=== PATIENT | male | born 1970 | race Caucasian/White ===

== ENCOUNTER 2020-02-26 21:21 | Inpatient (IN) | payer OTHER, SELFPAY ==
[2020-02-26] MEDS ORDERED: Acetaminophen 500 MG TAB ONE (21:33)
[2020-02-26 21:52] LABS: #Monocytes 0.3 thou/uL (0.11-0.59); #Neutrophils 3.3 thou/uL (1.40-6.50); %Eosinophils 0.6 % (0.0-10.0); %Lymphocytes 35.4 % (21.0-51.0); %Monocytes 5.2 % (0.0-10.0); %Neutrophils 58.9 % (42.0-75.0); Hemoglobin 14.2 g/dL (14.0-18.0); Mean Corpuscular HGB CONC 33.4 g/dL (32.0-36.0); Mean Corpuscular Hemoglobin 31.9 pg (27.0-31.0); Mean Corpuscular Volume 95.3 fL (78.0-98.0); Mean Platelet Volume 9.3 fL (7.4-10.4); Platelet Count 162 thou/uL (130-400); RBC Distribution Width 10.6 % (11.5-14.5); Red Blood Cell (RBC) Count 4.45 mill/uL (4.70-6.10); White Blood Cell (WBC) Count 5.6 thou/uL (4.8-10.8)
--- NOTE | 2020-02-26 21:55 | RAD ---
PORTABLE CHEST: 02/26/20 PROVIDED CLINICAL HISTORY: Dyspnea, COVID positive. FINDINGS: Comparison 05/04/07. Cardiac and mediastinal silhouette is within normal limits. There is bilateral air space disease invo lving predominantly mid and lower lung zones. There is no pleural fluid or pneumothorax apparent. IMPRESSION: Bilateral air space disease, compatible with pneumonia. POS: AJIME
[2020-02-26 22:13] LABS: ALT (SGPT) 33 U/L (8-55); AST (SGOT) 41 U/L (5-34); Albumin 4.1 g/dL (3.5-5.0); Alkaline Phosphatase 94 U/L (40-110); Anion Gap 15 mmol/L (10-20); BUN (Urea Nitrogen) 10 mg/dL (8.9-20.6); Bilirubin, Total 1.2 mg/dL (0.2-1.2); Calc. Creatinine Clearance 0 mL/min (70-130); Calcium 8.4 mg/dL (7.8-10.44); Carbon Dioxide 22 mmol/L (22-29); Chloride 102 mmol/L (98-107); Estimated GFR-MDRD 83; Globulin 3.4 g/dL (2.4-3.5); Glucose 124 mg/dL (70-105); Potassium 3.5 mmol/L (3.5-5.1); Protein, Total 7.5 g/dL (6.0-8.3); Sodium 135 mmol/L (136-145)
--- NOTE | 2020-02-26 22:25 | PDOC.FPRHP ---
- History of Present Illness Chief Complaint: SOB History of Present Illness: 50 yo M with asthma, COVID+ brought by EMS to ER for body aches, fever, and worsening SOB. Sxs of SOB started last Monday, went to office on Monday and tested for COVID which resulted as positive yesterday (Monday). Was sent in rx by PCP for plaquenil and azithromycin in which he has only been on one day of it. Today his breathing worsened requiring inc use of his asthma inhaler. Reports fevers and N/V/D for past day. No hematemesis or hematochezia. No recent travel. Works as construction. No positive sick/COVID contacts ED Course: NS bolus x2L 1g tylenol En route was given Duonebs - History PMHx:Asthma PSHx: R hand orthopoedic surgery for broken bones FHx:Denies Social: Denies TAD, works with construction - Review of Systems General: reports: fever/chills, weight/appetite/sleep changes ENT: reports: rhinorrhea Respiratory: reports: cough, congestion, shortness of breath Cardiovascular: denies: chest pain Gastrointestinal: reports: nausea, vomiting, diarrhea Skin: denies: rashes, lesions Neurological: denies: seizure Psychological: denies: anxiety, depression - Vital signs BP: [125/81] HR: [125] RR: [26] Tmax: [102.6] Pox: [98]% on [RA] Wt: [90.72kg ] - Physical Exam Constitutional: awake, alert and oriented, well developed HEENT: normocephalic and atraumatic, EOMI, conjunctiva clear -HEENT: dry mucosal membranes Neck: supple, FROM, trachea midline Lungs: no respiratory distress, no retractions Musculoskeletal: normal structure, ROM grossly normal Neurological: no focal deficit, CN II-XII intact, normal sensation Heme/Lymphatic: no unusual bruising or bleeding, no purpura Psychiatric: normal mood and affect, good judgment and insight, intact recent and remote memory FMR H&P: Results - Labs Result Diagrams: 02/26/20 21:45 02/26/20 21:45 Lab results: WBC 5.6 thou/uL (4.8-10.8) 02/26/20 21:45 Hgb 14.2 g/dL (14.0-18.0) 02/26/20 21:45 Hct 42.4 % (42.0-52.0) 02/26/20 21:45 MCV 95.3 fL (78.0-98.0) 02/26/20 21:45 Plt Count 162 thou/uL (130-400) 02/26/20 21:45 Neutrophils % 58.9 % (42.0-75.0) 02/26/20 21:45 Sodium 135 mmol/L (136-145) L 02/26/20 21:45 Potassium 3.5 mmol/L (3.5-5.1) 02/26/20 21:45 Chloride 102 mmol/L (98-107) 02/26/20 21:45 Carbon Dioxide 22 mmol/L (22-29) 02/26/20 21:45 BUN 10 mg/dL (8.9-20.6) 02/26/20 21:45 Creatinine 0.96 mg/dL (0.7-1.3) 02/26/20 21:45 Glucose 124 mg/dL (70-105) H 02/26/20 21:45 Lactic Acid 2.8 mmol/L (0.5-2.2) H 02/26/20 21:45 Calcium 8.4 mg/dL (7.8-10.44) 02/26/20 21:45 Total Bilirubin 1.2 mg/dL (0.2-1.2) 02/26/20 21:45 AST 41 U/L (5-34) H 02/26/20 21:45 ALT 33 U/L (8-55) 02/26/20 21:45 Alkaline Phosphatase 94 U/L (40-110) 02/26/20 21:45 Serum Total Protein 7.5 g/dL (6.0-8.3) 02/26/20 21:45 Albumin 4.1 g/dL (3.5-5.0) 02/26/20 21:45 - EKG Interpretation EKG: Tachycardia, no ST/T wave segment changes - Radiology Interpretation Chest x-ray Status: image reviewed by me, report reviewed by me Additional comment: b/l interstitial infiltrate FMR H&P: A/P - Problem List (1) COVID-19 Current Visit: Yes Status: Acute Code(s): U07.1 - COVID-19 (2) Lactic acidosis Current Visit: Yes Status: Acute Code(s): E87.2 - ACIDOSIS (3) Asthma Current Visit: Yes Status: Acute Code(s): J45.909 - UNSPECIFIED ASTHMA, UNCOMPLICATED - Plan 50 yo M with asthma and COVID+ here for sepsis 2/2 COVID #Sepsis 2/2 COVID -Tachycardic & tachypneic, febrile -Non hypoxic on room air, but mildly tachypneic, will obtain ABG -Took 400mg BID of plaquenil yesterday, so will continue with 200mg BID -Continue azithromycin 250mg -s/p Rocephin in ER, procal 0.3, will d/c -Will obtain LDH, CRP, ferritin, Ddimer, coags -admit to tele/obs #Lactic acidosis -LA 2.8, s/p 2L bolus, recheck #Asthma -Continue albuterol PRN by INH -Exam not consistent with asthma exacerbation DVT ppx: Lovenox Abx: Azithromycin, plaquenil Dispo: >2 midnights PCP: Susana Code: Full Discussed with Dr. Wetzel FMR H&P: Upper Level - Plan Date/Time: 02/26/203 I, [], have evaluated this patient and agree with findings/plan as outlined by senior international tax manager resident. Pertinent changes/additions are listed here. Addendum - Attending - Attending Attestation Date/Time: 02/27/20 0023 I personally evaluated the patient and discussed the management with Dr. Betancourt. I agree with the History, Examination, Assessment and Plan documented above with any addition or exceptions noted below. Lungs CTA-B will hold off steroids for now. PRN albuterol INH. ABG for baseline SpO2 given underlying asthma. States he has not been in community since sx started on Monday.
[2020-02-26 22:48] LABS: INR-International Normal Ratio 0.9; PTT 34.4 SEC (22.9-36.1); Prothrombin Time 12.6 SEC (12.0-14.7)
[2020-02-26] MEDS ORDERED: Cefepime 2 GM VIAL ONE (23:21)
[2020-02-26] MEDS ORDERED: cefTRIAXone\\ROCEPHIN 2 GM VIAL ONE (23:58)
[2020-02-27] MEDS ORDERED: Sodium Chloride 0.9% 1,000 ML IV SCH (00:16)
[2020-02-27 00:22] VITALS: BMI 33.4
[2020-02-27 00:42] LABS: Actual Bicarbonate (HCO3a) 20.2 mEq/L (22-28); Base Excess (BEa) -3.3 mEq/L (-2.0 to +3.0); CO2 Tension 31.2 mmHg (35.0-45.0); Calcium, Ionized 1.04 mmol/L (1.12-1.30); Carboxyhemoglobin (COHb) 1.4 gm% (0.0-3.0); Hemoglobin (Hb) 12.4 g/dL (14.0-18.0); O2 Tension (PaO2) 67.3 mmHg (80.0-100.0); Potassium - ABG Lab 3.45 mmol/L (3.70-5.30); pH, Arterial 7.43 (7.35-7.45)
[2020-02-27 00:43] LABS: Puncture Site RBR
[2020-02-27] MEDS: Acetaminophen 500 MG TAB PO PRN ×2 (00:51→20:08)
[2020-02-27] MEDS: Lactated Ringer's 1,000 ML IV SCH ×4 (00:51→20:12)
[2020-02-27 00:56] LABS: Lactic Acid 1.2 mmol/L (0.5-2.2)
[2020-02-27] MEDS ORDERED: PROVENTIL INHALER 6.7 G (200 INHALATIONS) INH SCH (01:00)
[2020-02-27 01:05] LABS: Troponin I Less than 0.010 ng/mL (< 0.028)
[2020-02-27] MEDS: Albuterol 200 PUFF (6.7GM INHALER) INH SCH ×6 (01:26→20:20)
[2020-02-27] MEDS: Benzonatate 100 MG CAP PO PRN ×3 (05:04→15:02)
[2020-02-27 05:26] LABS: #Lymphocytes 1.3 thou/uL (1.20-3.40); #Monocytes 0.3 thou/uL (0.11-0.59); #Neutrophils 2.4 thou/uL (1.40-6.50); %Basophils 0.4 % (0.0-1.0); %Eosinophils 0.4 % (0.0-10.0); %Lymphocytes 32.4 % (21.0-51.0); %Monocytes 8.5 % (0.0-10.0); %Neutrophils 58.4 % (42.0-75.0); Hemoglobin 12.1 g/dL (14.0-18.0); Mean Corpuscular HGB CONC 33.4 g/dL (32.0-36.0); Mean Corpuscular Hemoglobin 32.2 pg (27.0-31.0); Mean Corpuscular Volume 96.5 fL (78.0-98.0); Mean Platelet Volume 9.1 fL (7.4-10.4); Platelet Count 149 thou/uL (130-400); RBC Distribution Width 10.7 % (11.5-14.5); Red Blood Cell (RBC) Count 3.77 mill/uL (4.70-6.10)
[2020-02-27] MEDS ORDERED: Ibuprofen 600 MG TAB PO ONE (05:30)
[2020-02-27 05:47] LABS: Lactic Acid 1.4 mmol/L (0.5-2.2)
[2020-02-27 05:51] LABS: ALT (SGPT) 28 U/L (8-55); AST (SGOT) 36 U/L (5-34); Albumin 3.3 g/dL (3.5-5.0); Alkaline Phosphatase 76 U/L (40-110); Anion Gap 14 mmol/L (10-20); BUN (Urea Nitrogen) 8 mg/dL (8.9-20.6); Bilirubin, Total 1.1 mg/dL (0.2-1.2); Calc. Creatinine Clearance 144 mL/min (70-130); Calcium 7.7 mg/dL (7.8-10.44); Carbon Dioxide 20 mmol/L (22-29); Chloride 107 mmol/L (98-107); Estimated GFR-MDRD Greater than 90; Globulin 2.6 g/dL (2.4-3.5); Glucose 109 mg/dL (70-105); Potassium 3.9 mmol/L (3.5-5.1); Protein, Total 5.9 g/dL (6.0-8.3); Sodium 137 mmol/L (136-145)
[2020-02-27] MEDS: Enoxaparin Sodium 30 MG/0.3 ML SYRINGE SC SCH (08:45)
[2020-02-27] MEDS: Hydroxychloroquine Sulfate 200 MG TAB PO SCH ×2 (08:46→20:08)
[2020-02-27] MEDS: Azithromycin 250 MG, Admixture Fee 1 EACH in Sodium Chloride 0.9% 250 ML 250 ML IVPB SCH (08:46)
[2020-02-27] MEDS ORDERED: Hydroxychloroquine Sulfate 200 MG TAB PO SCH (09:00)
[2020-02-27] MEDS ORDERED: Azithromycin 250 MG TAB PO SCH (09:00)
--- NOTE | 2020-02-27 09:30 | PDOC.FM ---
- Subjective Subjective: Pt reports feeling improved from admission in regards to cough, sob, and fevers. no other complaints at this time. - Objective Vital Signs & Weight: Vital Signs (12 hours) Temp Pulse Resp BP Pulse Ox 02/27/20 07:12 99.6 F 82 22 H 116/72 95 02/27/20 04:00 98.2 F 82 24 H 126/67 100 02/27/20 01:01 98 02/27/20 00:22 100.2 F H 102 H 24 H 105/61 98 Weight Weight 91.036 kg Result Diagrams: 02/27/20 05:02 02/27/20 05:02 Phys Exam - Physical Examination Constitutional: NAD HEENT: moist MMs, sclera anicteric Neck: supple, full ROM Respiratory: no wheezing diffuse fine bilateral crackles Cardiovascular: RRR, no significant murmur Gastrointestinal: soft, non-tender Musculoskeletal: pulses present Neurological: normal sensation, moves all 4 limbs Psychiatric: normal affect, A&O x 3 Skin: no rash, normal turgor Dx/Plan (1) Sepsis Code(s): A41.9 - SEPSIS, UNSPECIFIED ORGANISM Status: Acute (2) Asthma Code(s): J45.909 - UNSPECIFIED ASTHMA, UNCOMPLICATED Status: Acute (3) COVID-19 Code(s): U07.1 - COVID-19 Status: Acute (4) Lactic acidosis Code(s): E87.2 - ACIDOSIS Status: Acute - Plan Plan: 50 yo M with asthma and COVID+ here for sepsis 2/2 COVID Sepsis 2/2 COVID A- improved from presentation. On admission pt was Tachycardic & tachypneic, febrile. Hypoxia on ABG, pt on O2. Symptomatic since 02/20, Started therapy on 02/24. Procal was 0.3. s/p 1 dose rocephin P- Continue azithromycin and hydroxychloroquin -f/u BCx -will trend covid labs Lactic acidosis -resolved Asthma -Continue albuterol PRN by INH, exam not consistent with asthma exacerbation DVT ppx: Lovenox PCP: Susana IVF: LR 100/hr Code: Full
[2020-02-27] MEDS: Metoclopramide HCl 10 MG/2 ML VIAL IVP PRN ×2 (10:08→23:07)
--- NOTE | 2020-02-27 14:53 | EKG ---
Test Reason : Blood Pressure : / mmHG Vent. Rate : 116 BPM Atrial Rate : 116 BPM P-R Int : 134 ms QRS Dur : 082 ms QT Int : 340 ms P-R-T Axes : 043 000 033 degrees QTc Int : 472 ms Sinus tachycardia Otherwise normal ECG Confirmed by VALDEZ JOYNER, MIKEL Loving ([id number]), assistant film editor SADIE ARMSTRONG ([id number]) on 02/27/2020 2:53:04 PM Referred By: Confirmed By:MIKEL KELLOGG MD
[2020-02-27] MEDS ORDERED: Morphine 10 MG/0.5 ML ORAL SYRINGE SL PRN (16:45)
[2020-02-27 18:22] LABS: Base Excess (BEa) -0.2 mEq/L (-2.0 to +3.0); Hemoglobin (Hb) 12.2 g/dL (14.0-18.0); pH, Arterial 7.46 (7.35-7.45)
[2020-02-27 18:23] LABS: Calcium, Ionized 1.12 mmol/L (1.12-1.30); Carboxyhemoglobin (COHb) 0.8 gm% (0.0-3.0); Puncture Site LRA
[2020-02-28] MEDS: Acetaminophen 500 MG TAB PO PRN ×3 (01:36→20:15)
[2020-02-28] MEDS: Albuterol 200 PUFF (6.7GM INHALER) INH SCH ×6 (01:58→23:21)
[2020-02-28] MEDS ORDERED: Aspirin/APAP/Caffeine Tab (Excedrin Migraine) PO SCH (02:00)
[2020-02-28] MEDS ORDERED: Lactated Ringer's 1,000 ML IV SCH (02:00)
[2020-02-28] MEDS: Lactated Ringer's 1,000 ML IV SCH ×3 (06:50→23:20)
[2020-02-28 08:11] LABS: ALT (SGPT) 34 U/L (8-55); AST (SGOT) 41 U/L (5-34); Albumin 3.2 g/dL (3.5-5.0); Alkaline Phosphatase 79 U/L (40-110); Anion Gap 13 mmol/L (10-20); BUN (Urea Nitrogen) 7 mg/dL (8.9-20.6); Bilirubin, Total 1.2 mg/dL (0.2-1.2); CRP (Inflammatory) 13.65 mg/dL (= or < 0.5); Calc. Creatinine Clearance 170 mL/min (70-130); Calcium 8.3 mg/dL (7.8-10.44); Carbon Dioxide 22 mmol/L (22-29); Chloride 108 mmol/L (98-107); Estimated GFR-MDRD Greater than 90; Globulin 2.9 g/dL (2.4-3.5); Glucose 80 mg/dL (70-105); Potassium 3.9 mmol/L (3.5-5.1); Protein, Total 6.1 g/dL (6.0-8.3); Sodium 139 mmol/L (136-145)
[2020-02-28] MEDS: Hydroxychloroquine Sulfate 200 MG TAB PO SCH ×2 (08:47→20:16)
[2020-02-28] MEDS: Enoxaparin Sodium 30 MG/0.3 ML SYRINGE SC SCH (08:47)
--- NOTE | 2020-02-28 08:58 | PDOC.FM ---
- Subjective Subjective: Pt feeling improved from yesterday, decreased cough/sob. no cp. no wheezing - Objective Vital Signs & Weight: Vital Signs (12 hours) Temp Pulse Resp BP Pulse Ox 02/28/20 08:44 99.1 F 79 20 139/77 100 02/28/20 03:15 97.1 F L 72 20 115/74 100 02/28/20 02:00 100 02/27/20 23:12 98.7 F 95 26 H 109/70 99 Weight Admit Weight 91.036 kg Weight 91.036 kg I&O: 02/27/20 02/28/20 02/29/20 06:59 06:59 06:59 Intake Total 1450 Output Total 200 Balance 1250 Result Diagrams: 02/27/20 05:02 02/28/20 07:27 Phys Exam - Physical Examination Constitutional: NAD HEENT: moist MMs, sclera anicteric Neck: no JVD, supple Respiratory: no wheezing bilat fine crackles Cardiovascular: RRR, no significant murmur Gastrointestinal: soft, non-tender Musculoskeletal: no edema, pulses present Neurological: normal sensation, moves all 4 limbs Psychiatric: normal affect, A&O x 3 Skin: no rash, normal turgor Dx/Plan (1) Sepsis Code(s): A41.9 - SEPSIS, UNSPECIFIED ORGANISM Status: Acute (2) Asthma Code(s): J45.909 - UNSPECIFIED ASTHMA, UNCOMPLICATED Status: Acute (3) COVID-19 Code(s): U07.1 - COVID-19 Status: Acute (4) Lactic acidosis Code(s): E87.2 - ACIDOSIS Status: Acute - Plan Plan: 50 yo M with asthma and COVID+ here for sepsis 2/2 COVID Sepsis 2/2 COVID A- stable from yesterday. Requiring 3L O2 now which is increase from admission, however pt no longer tachycardic/tachypneic. On admission pt was Tachycardic & tachypneic, febrile. Hypoxia on ABG, pt on O2. Symptomatic since 02/20, Started therapy on 02/24. Procal was 0.3. s/p 1 dose rocephin P- Continue azithromycin and hydroxychloroquin -f/u BCx -will trend covid labs Lactic acidosis -resolved Asthma -Continue albuterol PRN by INH, exam not consistent with asthma exacerbation DVT ppx: Lovenox PCP: Susana IVF: LR 100/hr Code: Full
[2020-02-28] MEDS: Azithromycin 250 MG, Admixture Fee 1 EACH in Sodium Chloride 0.9% 250 ML 250 ML IVPB SCH (09:52)
[2020-02-28] MEDS: Benzonatate 100 MG CAP PO PRN ×2 (13:36→20:16)
[2020-02-29] MEDS: Acetaminophen 500 MG TAB PO PRN ×3 (04:20→20:38)
[2020-02-29] MEDS: Albuterol 200 PUFF (6.7GM INHALER) INH SCH ×6 (04:21→20:41)
[2020-02-29 06:21] LABS: ALT (SGPT) 44 U/L (8-55); AST (SGOT) 50 U/L (5-34); Albumin 3.3 g/dL (3.5-5.0); Alkaline Phosphatase 94 U/L (40-110); Anion Gap 9 mmol/L (10-20); BUN (Urea Nitrogen) 7 mg/dL (8.9-20.6); Bilirubin, Total 1.6 mg/dL (0.2-1.2); Calc. Creatinine Clearance 158 mL/min (70-130); Calcium 8.7 mg/dL (7.8-10.44); Carbon Dioxide 29 mmol/L (22-29); Chloride 103 mmol/L (98-107); Estimated GFR-MDRD Greater than 90; Globulin 2.9 g/dL (2.4-3.5); Glucose 97 mg/dL (70-105); Potassium 3.9 mmol/L (3.5-5.1); Protein, Total 6.2 g/dL (6.0-8.3); Sodium 137 mmol/L (136-145)
[2020-02-29] MEDS: Azithromycin 250 MG, Admixture Fee 1 EACH in Sodium Chloride 0.9% 250 ML 250 ML IVPB SCH (08:19)
[2020-02-29] MEDS: Hydroxychloroquine Sulfate 200 MG TAB PO SCH ×2 (08:20→20:35)
[2020-02-29] MEDS: Enoxaparin Sodium 30 MG/0.3 ML SYRINGE SC SCH (08:21)
[2020-02-29] MEDS: Lactated Ringer's 1,000 ML IV SCH ×2 (08:22→20:35)
--- NOTE | 2020-02-29 10:11 | PDOC.FM ---
- Subjective Subjective: Pt reports feeling mild improvement from yesterday, no new complaitns, continued sob/cough - Objective Vital Signs & Weight: Vital Signs (12 hours) Temp Pulse Resp BP Pulse Ox 02/29/20 08:13 97.6 F 79 20 123/78 100 02/29/20 04:00 101.2 F H 96 18 137/80 100 02/29/20 00:00 99.5 F 83 18 128/76 100 Weight Admit Weight 91.036 kg Weight 91.036 kg I&O: 02/28/20 02/29/20 03/01/20 06:59 06:59 06:59 Intake Total 1450 1560 Output Total 200 1275 Balance 1250 285 Result Diagrams: 02/27/20 05:02 02/29/20 05:07 Phys Exam - Physical Examination Constitutional: NAD HEENT: moist MMs, sclera anicteric Neck: supple, full ROM Respiratory: no wheezing fine crackles bilat Cardiovascular: RRR, no significant murmur Gastrointestinal: soft, non-tender Musculoskeletal: no edema, pulses present Neurological: normal sensation, moves all 4 limbs Psychiatric: normal affect, A&O x 3 Skin: no rash, normal turgor Dx/Plan (1) Sepsis Code(s): A41.9 - SEPSIS, UNSPECIFIED ORGANISM Status: Acute (2) Asthma Code(s): J45.909 - UNSPECIFIED ASTHMA, UNCOMPLICATED Status: Acute (3) COVID-19 Code(s): U07.1 - COVID-19 Status: Acute (4) Lactic acidosis Code(s): E87.2 - ACIDOSIS Status: Acute - Plan Plan: 50 yo M with asthma and COVID+ here for sepsis 2/2 COVID Sepsis 2/2 COVID A- stable from yesterday. Requiring 2-3L however pt no longer tachycardic/ tachypneic. On admission pt was Tachycardic & tachypneic, febrile. Hypoxia on ABG, pt on O2. Symptomatic since 02/20, Started therapy on 02/24. Procal was 0.3. s/ p 1 dose rocephin. BCx negative P- Continue azithromycin and hydroxychloroquin -will trend covid labs -monitor heart on tele strip considering hydroxychloroquin Lactic acidosis -resolved Asthma -Continue albuterol PRN by INH, exam not consistent with asthma exacerbation DVT ppx: Lovenox PCP: Susana IVF: LR 100/hr Code: Full
[2020-02-29] MEDS: HYDROcodone/Acetaminophen 5/325 mg Tablet PO PRN ×2 (16:05→22:05)
[2020-02-29] MEDS: Benzonatate 100 MG CAP PO PRN (17:42)
[2020-02-29] MEDS: Metoclopramide HCl 10 MG/2 ML VIAL IVP PRN (22:59)
[2020-03-01] MEDS: Lactated Ringer's 1,000 ML IV SCH ×2 (04:41→17:00)
[2020-03-01] MEDS: Albuterol 200 PUFF (6.7GM INHALER) INH SCH ×5 (04:42→17:30)
[2020-03-01] MEDS: HYDROcodone/Acetaminophen 5/325 mg Tablet PO PRN ×3 (04:44→13:52)
[2020-03-01 07:26] LABS: ALT (SGPT) 54 U/L (8-55); AST (SGOT) 46 U/L (5-34); Albumin 3.2 g/dL (3.5-5.0); Alkaline Phosphatase 120 U/L (40-110); Anion Gap 10 mmol/L (10-20); BUN (Urea Nitrogen) 7 mg/dL (8.9-20.6); Bilirubin, Total 1.7 mg/dL (0.2-1.2); Calc. Creatinine Clearance 163 mL/min (70-130); Calcium 8.5 mg/dL (7.8-10.44); Carbon Dioxide 28 mmol/L (22-29); Chloride 101 mmol/L (98-107); Estimated GFR-MDRD Greater than 90; Globulin 3.1 g/dL (2.4-3.5); Glucose 92 mg/dL (70-105); Potassium 3.6 mmol/L (3.5-5.1); Protein, Total 6.3 g/dL (6.0-8.3); Sodium 135 mmol/L (136-145)
[2020-03-01 07:30] LABS: #Eosinphils 0.1 thou/uL (0.0-0.7); #Lymphocytes 1.6 thou/uL (1.20-3.40); #Monocytes 0.9 thou/uL (0.11-0.59); #Neutrophils 3.7 thou/uL (1.40-6.50); %Basophils 0.2 % (0.0-1.0); %Eosinophils 1.9 % (0.0-10.0); %Lymphocytes 25.6 % (21.0-51.0); %Monocytes 13.8 % (0.0-10.0); %Neutrophils 58.5 % (42.0-75.0); Hemoglobin 10.9 g/dL (14.0-18.0); Mean Corpuscular HGB CONC 34.4 g/dL (32.0-36.0); Mean Corpuscular Hemoglobin 32.9 pg (27.0-31.0); Mean Corpuscular Volume 95.4 fL (78.0-98.0); Mean Platelet Volume 8.4 fL (7.4-10.4); Platelet Count 218 thou/uL (130-400); RBC Distribution Width 10.4 % (11.5-14.5); Red Blood Cell (RBC) Count 3.32 mill/uL (4.70-6.10); White Blood Cell (WBC) Count 6.3 thou/uL (4.8-10.8)
[2020-03-01] MEDS: Hydroxychloroquine Sulfate 200 MG TAB PO SCH (08:52)
[2020-03-01] MEDS: Enoxaparin Sodium 30 MG/0.3 ML SYRINGE SC SCH (08:52)
[2020-03-01] MEDS: Azithromycin 250 MG, Admixture Fee 1 EACH in Sodium Chloride 0.9% 250 ML 250 ML IVPB SCH (08:52)
--- NOTE | 2020-03-01 09:24 | PDOC.FM ---
- Subjective Subjective: Pt stable, reports improvement on sob, no new complaints - Objective Vital Signs & Weight: Vital Signs (12 hours) Temp Pulse Resp BP Pulse Ox 03/01/20 08:43 98.5 F 93 18 124/80 95 03/01/20 04:00 99.9 F H 90 22 H 133/83 97 02/29/20 23:02 100.5 F H 96 25 H 116/69 100 02/29/20 22:08 102.8 F H 99 Weight Admit Weight 91.036 kg Weight 91.036 kg I&O: 02/29/20 03/01/20 03/02/20 06:59 06:59 06:59 Intake Total 1560 1730 Output Total 1275 1715 Balance 285 15 Result Diagrams: 03/01/20 07:21 03/01/20 04:27 Phys Exam - Physical Examination Constitutional: NAD HEENT: moist MMs, sclera anicteric Neck: supple, full ROM Respiratory: no wheezing, no rhonchi Cardiovascular: RRR, no significant murmur Gastrointestinal: soft, non-tender Musculoskeletal: no edema, pulses present Neurological: normal sensation, moves all 4 limbs Psychiatric: normal affect, A&O x 3 Skin: no rash, normal turgor Dx/Plan (1) Sepsis Code(s): A41.9 - SEPSIS, UNSPECIFIED ORGANISM Status: Acute (2) Asthma Code(s): J45.909 - UNSPECIFIED ASTHMA, UNCOMPLICATED Status: Acute (3) COVID-19 Code(s): U07.1 - COVID-19 Status: Acute (4) Lactic acidosis Code(s): E87.2 - ACIDOSIS Status: Acute - Plan Plan: 50 yo M with asthma and COVID+ here for sepsis 2/2 COVID Sepsis 2/2 COVID A- Improved, while in room was satting 100% on RA. On admission pt was Tachycardic & tachypneic, febrile. Hypoxia on ABG, pt on O2. Symptomatic since , Started therapy on 02/24. Procal was 0.3. s/p 1 dose rocephin. BCx negative P- Continue azithromycin and hydroxychloroquin -will trend covid labs (ferritin, LDH, ddimer, CRP - Q2D) -monitor heart on tele strip considering hydroxychloroquin -room air trial today Lactic acidosis -resolved Asthma -Continue albuterol PRN by INH, exam not consistent with asthma exacerbation DVT ppx: Lovenox PCP: Susana IVF: LR 100/hr Code: Full
[2020-03-01] MEDS: Metoclopramide HCl 10 MG/2 ML VIAL IVP PRN (10:08)
[2020-03-01 17:29] VITALS: BP 134/79; TEMP 99.5
--- NOTE | 2020-03-02 10:47 | DIS ---
DATE OF ADMISSION: 02/26/2020 DATE OF DISCHARGE: 03/01/2020 RESIDENT: Robert Salmon MD. I personally saw this patient for a total of 4 days. ADMITTING ATTENDING: Arnel Wetzel MD. DISCHARGE ATTENDING: Robert Sandhu MD. CONSULTS: None. PROCEDURES: On 02/26/2020, chest x-ray, impression; bilateral airspace disease compatible with pneumonia. DISCHARGE MEDICATIONS: 1. Albuterol sulfate two puffs inhaled q.4 hours p.r.n., resumed at home. 2. Tessalon 100 mg p.o. q.4 hours p.r.n. 3. Acetaminophen 1 g p.o. q.8 hours p.r.n. DISCONTINUED MEDICATIONS: None. PRIMARY DIAGNOSIS: Acute hypoxic respiratory failure secondary to COVID-19 pneumonia. SECONDARY DIAGNOSES: Headache, lactic acidosis, asthma. HISTORY OF PRESENT ILLNESS AND HOSPITAL COURSE: This is a 50-year-old male with past medical history of asthma, who presented to the ER in respiratory distress. The patient had outpatient COVID positive test performed and had worsening respiratory status and so was instructed to go to the ER. On presentation, he was found to be hypoxic and so, the patient was put on nasal cannula and had therapy of hydroxychloroquine and azithromycin initiated for COVID-19 infection. Over the span of hospitalization, the patient had slow improvement. He was eventually weaned from oxygen and stable on room air. The patient received a full 5-day course of hydroxychloroquine and azithromycin with no complications. Otherwise, hospital stay was just noted for headache secondary to cough. Regarding the patient's asthma history, he never had wheezing on exams and it was felt that his respiratory distress was secondary to the COVID infection, not asthma. DISPOSITION: Stable. DISCHARGE INSTRUCTIONS: 1. Location: Home. 2. Activity: As tolerated. 3. Diet: Regular. 4. Followup: Follow up with Dr. Meza in 7 to 10 days and follow up with Dr. Gibbons in 3 days via telephone visit. The patient was instructed to self isolate at home until he had been 72 hours afebrile. Job ID: [id number]
== END 2020-03-01 19:20 | disposition home or self-care (01) | DRG 871 ==
LOC: ERS 21:21 → 2SW 23:38
PROVIDERS: ADMIT Family Medicine; ATTEND Family Medicine
PROC: 8E0ZXY6 Isolation (ICD-10-PCS; principal; 2020-02-26)
DX: A41.89 Other specified sepsis (principal); U07.1 COVID-19; J12.89 Other viral pneumonia; J96.01 Acute respiratory failure with hypoxia; E87.2 Acidosis; R51 Headache; J45.909 Unspecified asthma, uncomplicated
CPT/HCPCS: 36415; 71045; 80053; 82728; 82805; 83605; 83615; 84145; 84484; 85025; 85379; 85610; 85730; 86140; 87040; 93005; 94760; 96360; 96361; 96365; J0456; J0692; J0696; J1650; J2765; J7050

== ENCOUNTER 2021-10-01 04:34 | Inpatient (IN) | payer OTHER ==
[2021-10-01] MEDS ORDERED: Ondansetron PF 4 MG/2 ML Vial ONE ×2 (05:09→15:39)
[2021-10-01] MEDS ORDERED: Morphine 4 MG/ML VIAL ONE ×2 (05:09→07:05)
[2021-10-01 05:15] LABS: #Basophils 0.1 thou/uL (0.0-0.2); #Eosinphils 0.2 thou/uL (0.0-0.7); #Monocytes 0.6 thou/uL (0.11-0.59); #Neutrophils 3.4 thou/uL (1.40-6.50); %Basophils 0.8 % (0.0-1.0); %Eosinophils 3.2 % (0.0-10.0); %Lymphocytes 40.6 % (21.0-51.0); %Monocytes 8.6 % (0.0-10.0); %Neutrophils 46.8 % (42.0-75.0); Hemoglobin 15.3 g/dL (14.0-18.0); Mean Corpuscular HGB CONC 34.1 g/dL (32.0-36.0); Mean Corpuscular Hemoglobin 32.9 pg (27.0-31.0); Mean Corpuscular Volume 96.4 fL (78.0-98.0); Mean Platelet Volume 8.4 fL (7.4-10.4); Platelet Count 190 thou/uL (130-400); RBC Distribution Width 10.8 % (11.5-14.5); Red Blood Cell (RBC) Count 4.64 mill/uL (4.70-6.10); White Blood Cell (WBC) Count 7.3 thou/uL (4.8-10.8)
[2021-10-01 05:37] LABS: ALT (SGPT) 248 U/L (8-55); AST (SGOT) 269 U/L (5-34); Albumin 4.1 g/dL (3.5-5.0); Alkaline Phosphatase 118 U/L (40-110); Anion Gap 12 mmol/L (10-20); BUN (Urea Nitrogen) 10 mg/dL (8.4-25.7); Bilirubin, Total 3.3 mg/dL (0.2-1.2); Calc. Creatinine Clearance 0 mL/min (70-130); Calcium 9.3 mg/dL (7.8-10.44); Carbon Dioxide 26 mmol/L (22-29); Chloride 102 mmol/L (98-107); Globulin 2.7 g/dL (2.4-3.5); Glucose 183 mg/dL (70-105); Lipase 28 U/L (8-78); Potassium 3.9 mmol/L (3.5-5.1); Protein, Total 6.8 g/dL (6.0-8.3); Sodium 136 mmol/L (136-145)
[2021-10-01 05:50] LABS: Bilirubin 1+ (Negative); Blood, Urine Negative (Negative); Clarity Clear (Clear); Glucose, Urine (Dipstick) 30 mg/dL (Negative); Ketone, Urine Negative (Negative); Leukocyte Negative Leu/uL (Negative); Nitrite Negative (Negative); Protein, Urine (Dipstick) Negative (Neg-Trace); Specific Gravity, Urine 1.023 (1.002-1.036); pH, Urine 6.5 (5.0-9.0)
[2021-10-01] MEDS ORDERED: Piperacillin/Tazobactam 3.375 GM VIAL ONE (07:06)
[2021-10-01 08:52] LABS: SARS-CoV-2 NAA Rapid Test Not Detected (NotDetected)
[2021-10-01] MEDS ORDERED: Ondansetron ODT 4 MG TAB PO PRN (09:20)
[2021-10-01] MEDS ORDERED: Ondansetron PF 4 MG/2 ML Vial IVP PRN ×2 (09:20→18:04)
[2021-10-01 09:23] VITALS: BMI 33.3
[2021-10-01] MEDS: Morphine 4 MG/ML VIAL SLOW IVP PRN ×2 (09:50→13:14)
[2021-10-01] MEDS: Lactated Ringer's 1,000 ML IV SCH ×2 (09:50→18:31)
[2021-10-01] MEDS ORDERED: FLU VACC QS2021-22(6MOS UP)/PF 60 MCG/0.5 ML SYRINGE IM ONE (14:00)
[2021-10-01] MEDS ORDERED: Lidocaine 1% w/Epinephrine 1:100K 20 ML VIAL ONE (15:03)
[2021-10-01] MEDS ORDERED: Iothalamate Meglumine 60% 50 ML VIAL FS ONE (15:03)
[2021-10-01] MEDS ORDERED: Bupivacaine 0.25% HCL 30 ML VIAL ONE (15:03)
[2021-10-01] MEDS ORDERED: Fentanyl 100 MCG/2 ML VIAL ONE (15:12)
[2021-10-01] MEDS ORDERED: Midazolam HCl 2 mg/2 ml Vial ONE (15:28)
[2021-10-01] MEDS ORDERED: SUGAMMADEX SODIUM 200 MG/2 ML VIAL ONE (15:28)
[2021-10-01] MEDS ORDERED: Dexamethasone 20 MG/5 ML VIAL ONE (15:39)
[2021-10-01] MEDS ORDERED: Lidocaine 1% PF 5 ML VIAL ONE (15:39)
[2021-10-01] MEDS ORDERED: Rocuronium Bromide 10 MG/ML (10ML VIAL) ONE (15:39)
[2021-10-01] MEDS ORDERED: Succinylcholine 200 MG/10 ml SYRINGE FS ONE (15:39)
[2021-10-01] MEDS ORDERED: PROPOFOL 200 MG/20 ML VIAL ONE (15:39)
[2021-10-01] MEDS ORDERED: Piperacillin/Tazobactam 3.375 GM in Sodium Chloride 0.9% 100 ML IVPB SCH (16:00)
[2021-10-01] MEDS ORDERED: Ketorolac Tromethamine 30 MG/ML VIAL IVP PRN (17:44)
[2021-10-01] MEDS ORDERED: Promethazine HCl 25 MG/ML VIAL IVPB PRN (17:44)
[2021-10-01] MEDS ORDERED: Promethazine HCl 25 MG/ML VIAL IM PRN ×2 (17:44→18:04)
[2021-10-01] MEDS ORDERED: Ondansetron HCl/PF 4 MG/2 ML Vial IVP PRN (17:44)
[2021-10-01] MEDS ORDERED: HYDROmorphone 2 MG/ML VIAL SLOW IVP PRN (17:44)
[2021-10-01] MEDS ORDERED: hydrALAZINE 20 MG/ML VIAL SLOW IVP PRN (18:04)
[2021-10-01] MEDS ORDERED: Mag-Al 1200 mg/1200 mg/30 ML UDCUP PO PRN (18:04)
[2021-10-01] MEDS ORDERED: Dextrose 5% in Water 1,000 ML IV PRN (18:04)
[2021-10-01] MEDS ORDERED: Dextrose 50% Abboject 50 ML SYRINGE SLOW IVP PRN (18:04)
[2021-10-01] MEDS ORDERED: Calcium Carbonate 500 MG ChewTAB PO PRN (18:04)
[2021-10-01] MEDS ORDERED: Ketorolac Tromethamine 30 MG/ML VIAL ONE (18:20)
[2021-10-01] MEDS ORDERED: Morphine 4 MG/ML VIAL SLOW IVP PRN (18:42)
[2021-10-01] MEDS: D5 1/2 NS w/20 mEq KCL 1,000 ML IV SCH (19:52)
[2021-10-01] MEDS: HYDROcodone/Acetaminophen 10/325 mg Tablet PO PRN (19:59)
[2021-10-01] MEDS: cefOXitin Sodium/Dextrose,Iso 1 GM in Premix Bag 1 BAG IVPB SCH (20:00)
[2021-10-01] MEDS: Famotidine/PF 20 mg/2ml Vial SLOW IVP SCH (20:06)
[2021-10-01] MEDS: Famotidine 20 MG TAB PO SCH (20:44)
[2021-10-02] MEDS: HYDROcodone/Acetaminophen 10/325 mg Tablet PO PRN (02:02)
[2021-10-02] MEDS: Morphine 4 MG/ML VIAL SLOW IVP PRN ×2 (04:35→07:48)
[2021-10-02] MEDS: D5 1/2 NS w/20 mEq KCL 1,000 ML IV SCH ×2 (04:38→18:49)
[2021-10-02] MEDS: cefOXitin Sodium/Dextrose,Iso 1 GM in Premix Bag 1 BAG IVPB SCH ×2 (05:03→14:14)
[2021-10-02 06:38] LABS: #Basophils 0.1 thou/uL (0.0-0.2); #Lymphocytes 1.3 thou/uL (1.20-3.40); #Monocytes 1.3 thou/uL (0.11-0.59); #Neutrophils 15.9 thou/uL (1.40-6.50); %Basophils 0.3 % (0.0-1.0); %Eosinophils 0.2 % (0.0-10.0); %Lymphocytes 7.1 % (21.0-51.0); %Monocytes 6.8 % (0.0-10.0); %Neutrophils 85.6 % (42.0-75.0); Hemoglobin 17.3 g/dL (14.0-18.0); Mean Corpuscular HGB CONC 32.5 g/dL (32.0-36.0); Mean Corpuscular Volume 98.5 fL (78.0-98.0); Platelet Count 218 thou/uL (130-400); RBC Distribution Width 11.1 % (11.5-14.5); White Blood Cell (WBC) Count 18.6 thou/uL (4.8-10.8)
[2021-10-02 07:04] LABS: ALT (SGPT) 558 U/L (8-55); AST (SGOT) 395 U/L (5-34); Albumin 3.6 g/dL (3.5-5.0); Alkaline Phosphatase 164 U/L (40-110); Anion Gap 15 mmol/L (10-20); BUN (Urea Nitrogen) 11 mg/dL (8.4-25.7); Bilirubin, Total 9.4 mg/dL (0.2-1.2); Calc. Creatinine Clearance 106 mL/min (70-130); Calcium 8.1 mg/dL (7.8-10.44); Carbon Dioxide 21 mmol/L (22-29); Chloride 99 mmol/L (98-107); Globulin 2.9 g/dL (2.4-3.5); Glucose 320 mg/dL (70-105); Potassium 4.3 mmol/L (3.5-5.1); Protein, Total 6.5 g/dL (6.0-8.3); Sodium 131 mmol/L (136-145)
[2021-10-02 07:17] LABS: Lipase 2247 U/L (8-78)
[2021-10-02] MEDS: Famotidine/PF 20 mg/2ml Vial SLOW IVP SCH (07:55)
[2021-10-02] MEDS: Famotidine 20 MG TAB PO SCH (09:52)
[2021-10-02] MEDS ORDERED: Indomethacin 50 MG SUPP ONE (11:37)
[2021-10-02] MEDS ORDERED: Iothalamate Meglumine 60% 50 ML VIAL FS ONE (11:38)
[2021-10-02] MEDS ORDERED: Insulin Regular 300 UNITS/3 ML VIAL ONE (11:57)
[2021-10-02] MEDS ORDERED: PROPOFOL 0 ML ONE (11:57)
[2021-10-02] MEDS ORDERED: Fentanyl 100 MCG/2 ML VIAL ONE (11:58)
[2021-10-02] MEDS ORDERED: Midazolam HCl 2 mg/2 ml Vial ONE (11:58)
[2021-10-02] MEDS ORDERED: Esmolol 100 MG/10 ML VIAL ONE (12:09)
[2021-10-02] MEDS ORDERED: PHENYLEPHRINE-NS 100 MCG/ML 10 ML SYRINGE ONE (12:09)
[2021-10-02] MEDS ORDERED: PROPOFOL 200 MG/20 ML VIAL ONE (12:09)
[2021-10-02] MEDS ORDERED: Dexamethasone 20 MG/5 ML VIAL ONE (12:09)
[2021-10-02] MEDS ORDERED: ePHEDrine 50 MG/ML VIAL ONE (12:09)
[2021-10-02] MEDS ORDERED: Metoclopramide HCl 10 MG/2 ML VIAL ONE (12:09)
[2021-10-02] MEDS ORDERED: Succinylcholine 200 MG/10 ml SYRINGE FS ONE (12:09)
[2021-10-02] MEDS ORDERED: Ondansetron PF 4 MG/2 ML Vial ONE (12:09)
[2021-10-02] MEDS ORDERED: Lidocaine 1% PF 5 ML VIAL ONE (12:09)
[2021-10-02] MEDS ORDERED: Ondansetron HCl/PF 4 MG/2 ML Vial IVP PRN (12:50)
[2021-10-02] MEDS ORDERED: Promethazine HCl 25 MG/ML VIAL IVPB PRN (12:50)
[2021-10-02] MEDS ORDERED: HYDROmorphone 2 MG/ML VIAL SLOW IVP PRN (12:50)
[2021-10-02] MEDS ORDERED: Promethazine HCl 25 MG/ML VIAL IM PRN (12:50)
[2021-10-02] MEDS ORDERED: Meperidine HCl/PF 25 MG/ML VIAL SLOW IVP PRN (12:50)
[2021-10-02] MEDS ORDERED: Insulin Regular 300 UNITS/3 ML VIAL SC SCH (13:00)
[2021-10-02] MEDS ORDERED: Labetalol HCl 100 MG/20 ML VIAL ONE (13:53)
[2021-10-02] MEDS ORDERED: cefOXitin Sodium/Dextrose 2 GM/50 ML BAG ONE (14:12)
[2021-10-02] MEDS ORDERED: Insulin Regular 300 UNITS/3 ML VIAL SC PRN (14:30)
[2021-10-02] MEDS ORDERED: Dextrose 5% in Water 1,000 ML IV PRN (14:30)
[2021-10-02] MEDS ORDERED: Dextrose 50% Abboject 50 ML SYRINGE IVP PRN (14:30)
[2021-10-02] MEDS ORDERED: Sodium Chloride 0.9% 1,000 ML IV SCH (15:15)
[2021-10-02 15:37] VITALS: BP 120/62; TEMP 98.2
== END 2021-10-02 19:00 | disposition short-term general hospital (02) | DRG 417 ==
LOC: ERS 04:34 → SURG A 06:41 → OBSVTOIN 18:04
PROVIDERS: ADMIT Specialist; ATTEND Specialist
PROC: 0FT44ZZ Resection of Gallbladder, Percutaneous Endoscopic Approach (ICD-10-PCS; principal; 2021-10-01)
PROC: BF121ZZ Fluoroscopy of Gallbladder using Low Osmolar Contrast (ICD-10-PCS; 2021-10-01)
PROC: 0FJB8ZZ Inspection of Hepatobiliary Duct, Via Natural or Artificial Opening Endoscopic (ICD-10-PCS; 2021-10-02)
DX: K80.10 Calculus of gallbladder with chronic cholecystitis without obstruction (principal); K85.90 Acute pancreatitis without necrosis or infection, unspecified; Z20.822 Contact with and (suspected) exposure to COVID-19; I10 Essential (primary) hypertension; E66.9 Obesity, unspecified; Z68.33 Body mass index [BMI] 33.0-33.9, adult; Z86.16 Personal history of COVID-19
CPT/HCPCS: 36415; 36416; 47532; 74330; 76705; 80053; 81003; 83690; 84484; 85025; 87086; 90471; 90686; 90732; 93005; G0008; G0009; J0360; J0690; J0694; J1100; J1610; J1815; J1885; J2250; J2270; J2405; J2543; J2550; J2704; J2765; J3010; J3480; J3490; J7120; Q9961-U8; S0020; S0028; U0002

== ENCOUNTER 2021-10-11 12:20 | Emergency (ER) | payer OTHER, SELFPAY ==
[~2021-10-11 12:20] MED LIST: Iopamidol-370 76% 500 ML 1 ML ONE
[2021-10-11] MEDS ORDERED: Morphine 4 MG/ML VIAL ONE ×4 (13:18→21:37)
[2021-10-11] MEDS ORDERED: Ondansetron PF 4 MG/2 ML Vial ONE ×2 (13:18→17:45)
[2021-10-11 13:28] LABS: #Eosinphils 0.4 thou/uL (0.0-0.7); #Lymphocytes 2.5 thou/uL (1.20-3.40); #Monocytes 1.2 thou/uL (0.11-0.59); #Neutrophils 10.5 thou/uL (1.40-6.50); %Basophils 0.1 % (0.0-1.0); %Eosinophils 2.9 % (0.0-10.0); %Lymphocytes 16.9 % (21.0-51.0); %Monocytes 8.3 % (0.0-10.0); %Neutrophils 71.7 % (42.0-75.0); Hemoglobin 12.2 g/dL (14.0-18.0); Mean Corpuscular HGB CONC 33.3 g/dL (32.0-36.0); Mean Corpuscular Hemoglobin 33.1 pg (27.0-31.0); Mean Corpuscular Volume 99.4 fL (78.0-98.0); Mean Platelet Volume 9.1 fL (7.4-10.4); Platelet Count 239 thou/uL (130-400); RBC Distribution Width 11.4 % (11.5-14.5); Red Blood Cell (RBC) Count 3.68 mill/uL (4.70-6.10); White Blood Cell (WBC) Count 14.7 thou/uL (4.8-10.8)
[2021-10-11 13:47] LABS: ALT (SGPT) 98 U/L (8-55); AST (SGOT) 99 U/L (5-34); Albumin 2.9 g/dL (3.5-5.0); Alkaline Phosphatase 469 U/L (40-110); Anion Gap 14 mmol/L (10-20); BUN (Urea Nitrogen) 11 mg/dL (8.4-25.7); Bilirubin, Total 2.5 mg/dL (0.2-1.2); Calc. Creatinine Clearance 0 mL/min (70-130); Calcium 8.6 mg/dL (7.8-10.44); Carbon Dioxide 20 mmol/L (22-29); Chloride 99 mmol/L (98-107); Globulin 4.6 g/dL (2.4-3.5); Glucose 254 mg/dL (70-105); Lipase 151 U/L (8-78); Potassium 4.4 mmol/L (3.5-5.1); Protein, Total 7.5 g/dL (6.0-8.3); Sodium 129 mmol/L (136-145)
[2021-10-11 13:54] LABS: Bilirubin Negative (Negative); Blood, Urine Negative (Negative); Clarity Clear (Clear); Glucose, Urine (Dipstick) Greater than 1000 mg/dL (Negative); Ketone, Urine Trace mg/dL (Negative); Leukocyte Negative Leu/uL (Negative); Nitrite Negative (Negative); Protein, Urine (Dipstick) Negative (Neg-Trace); Specific Gravity, Urine 1.021 (1.002-1.036)
[2021-10-11] MEDS ORDERED: Piperacillin/Tazobactam 4.5 GM VIAL ONE (14:57)
== END 2021-10-11 22:04 | disposition short-term general hospital (02) ==
LOC: ERS 12:20
DX: K85.92 Acute pancreatitis with infected necrosis, unspecified (principal); I10 Essential (primary) hypertension; J45.909 Unspecified asthma, uncomplicated; Z86.16 Personal history of COVID-19
CPT/HCPCS: 74177; 80053; 81003; 83605; 83690; 85025; 94760; 96374; 96375; 96376; J2270; J2405; J2543; Q9967

== ENCOUNTER 2023-02-23 16:15 | Emergency (ER) | payer OTHER, SELFPAY ==
[2023-02-23] MEDS ORDERED: Morphine 4 MG/ML VIAL ONE (16:27)
[2023-02-23] MEDS ORDERED: Ondansetron PF 4 MG/2 ML Vial ONE (16:27)
[2023-02-23] MEDS ORDERED: Ketorolac Tromethamine 30 MG/ML VIAL ONE (16:27)
[2023-02-23 17:09] LABS: ALT (SGPT) 32 U/L (8-55); AST (SGOT) 25 U/L (5-34); Albumin 4.5 g/dL (3.5-5.0); Alkaline Phosphatase 157 U/L (40-110); Anion Gap 13 mmol/L (10-20); BUN (Urea Nitrogen) 12 mg/dL (8.4-25.7); Bilirubin, Total 0.5 mg/dL (0.2-1.2); Calc. Creatinine Clearance 0 mL/min (70-130); Calcium 9.3 mg/dL (7.8-10.44); Carbon Dioxide 22 mmol/L (22-29); Chloride 102 mmol/L (98-107); Estimated GFR 99; Globulin 3.4 g/dL (2.4-3.5); Glucose 371 mg/dL (70-105); Protein, Total 7.9 g/dL (6.0-8.3); Sodium 133 mmol/L (136-145)
[2023-02-23 17:10] LABS: #Eosinphils 0.2 thou/uL (0.0-0.7); #Lymphocytes 3.6 thou/uL (1.20-3.40); #Monocytes 0.6 thou/uL (0.11-0.59); #Neutrophils 3.5 thou/uL (1.40-6.50); %Basophils 0.2 % (0.0-1.0); %Eosinophils 2.4 % (0.0-10.0); %Lymphocytes 45.8 % (21.0-51.0); %Monocytes 7.1 % (0.0-10.0); %Neutrophils 44.5 % (42.0-75.0); Hemoglobin 15.7 g/dL (14.0-18.0); Mean Corpuscular HGB CONC 34.2 g/dL (32.0-36.0); Mean Corpuscular Hemoglobin 32.2 pg (27.0-31.0); Mean Corpuscular Volume 94.1 fl (78.0-98.0); Mean Platelet Volume 9.5 fL (7.4-10.4); Platelet Count 183 10x3/uL (130-400); RBC Distribution Width 10.9 % (11.5-14.5); Red Blood Cell (RBC) Count 4.89 mill/uL (4.70-6.10); White Blood Cell (WBC) Count 7.9 10x3/uL (4.8-10.8)
== END 2023-02-23 18:22 | disposition home or self-care (01) ==
LOC: ERS 16:15
DX: S00.83XA Contusion of other part of head, initial encounter (principal); S40.012A Contusion of left shoulder, initial encounter; S30.1XXA Contusion of abdominal wall, initial encounter; I10 Essential (primary) hypertension; E11.9 Type 2 diabetes mellitus without complications; V48.0XXA Car driver injured in noncollision transport accident in nontraffic accident, initial encounter; W22.11XA Striking against or struck by driver side automobile airbag, initial encounter; Z79.84 Long term (current) use of oral hypoglycemic drugs
CPT/HCPCS: 70450; 71045; 72125; 74177; 80053; 85025; 93005; 96374; 96375; G0390; J1885; J2270; J2405